=== PATIENT | female | born 1975 | race African-American/Black ===

== ENCOUNTER 2021-10-22 16:17 | Inpatient (IN) | payer SELFPAY ==
[~2021-10-22] VITALS: Ht 162.6 cm; Wt 138.2 kg
[2021-10-22] MEDS ORDERED: ASPIRIN 325 MG TABLET PO ONE (16:30)
--- NOTE | 2021-10-22 16:38 | PHYS DOC ---
General Adult EDM: Chief Complaint: CHEST PAIN HPI: HPI: Patient is a 46 year old female who presents with chest pain lives with her chest pressure heaviness that started last night. She states this subsided slightly but has come back today. She states she is stressed. She has not been on her blood pressure medications for about a year due to not having insurance. Rates her discomfort an 8 out of 10. Patient has a history of hypertension which she supposed be taking metoprolol 50 mg 4. She does have a family history of cardiac disease and she states her dad had CHF. Review of Systems: Review of Systems: Constitutional: Denies fever or chills. [] Eyes: Denies change in visual acuity. [] HENT: Denies nasal congestion or sore throat. [] Respiratory: Denies cough or +shortness of breath. [] Cardiovascular: + chest pain or edema. [] GI: Denies abdominal pain, nausea, vomiting, bloody stools or diarrhea. [] : Denies dysuria. [] Musculoskeletal: Denies back pain or joint pain. [] Integument: Denies rash. [] Neurologic: +headache, denies focal weakness or sensory changes. [] Endocrine: Denies polyuria or polydipsia. [] Lymphatic: Denies swollen glands. [] Psychiatric: Denies depression or anxiety. [] Heart Score: C/O Chest Pain: Yes HEART Score for Chest Pain: HEART Score for Chest Pain Response (Comments) Value History Moderately Suspicious 1 ECG Nonspecific Repolarizatio 1 Age >45 - < 65 1 Risk Factors >3 Risk Factors or Hx CAD 2 Troponin < Normal Limit 0 Total 5 Risk Factors: Risk Factors: DM, Current or recent (<one month) smoker, HTN, HLP, family history of CAD, obesity. Risk Scores: Score 0 - 3: 2.5% MACE over next 6 weeks - Discharge Home Score 4 - 6: 20.3% MACE over next 6 weeks - Admit for Clinical Observation Score 7 - 10: 72.7% MACE over next 6 weeks - Early Invasive Strategies Current Medications: Current Medications Medications (Trade) Dose Ordered Sig/Aminah Start Time Stop Time Status Last Admin Dose Admin Aspirin (Jv Aspirin) 325 mg 1X ONCE 10/22/21 16:30 10/22/21 16:31 DC Allergies: Allergies: Allergies Coded Allergies Type Severity Reaction Last Updated Verified No Known Drug Allergies 10/22/21 No Physical Exam: PE: Constitutional: Well developed, well nourished, no acute distress, non-toxic appearance. [] HENT: Normocephalic, atraumatic, bilateral external ears normal, oropharynx moist, no oral exudates, nose normal. [] Eyes: PERRLA, EOMI, conjunctiva normal, no discharge. [] Neck: Normal range of motion, no tenderness, supple, no stridor. [] Cardiovascular:Heart rate regular rhythm, no murmur [] Lungs & Thorax: Bilateral upper breath sounds clear and lower diminished to auscultation [] Abdomen: Bowel sounds normal, soft, no tenderness, no masses, no pulsatile masses. [] Skin: Warm, dry, no erythema, no rash. [] Back: No tenderness, no CVA tenderness. [] Extremities: No tenderness, no cyanosis, no clubbing, ROM intact, 1+ peripheral edema. [] Neurologic: Alert and oriented X 3, normal motor function, normal sensory function, no focal deficits noted. [] Psychologic: Affect normal, judgement normal, mood normal. [] EKG: EK and read by Dr Pisano as Sinus Rhythm with LVH, Left diviation, No STEMI [address] Pisano as Sinus Rhythm with a widening QT, No STEMI Radiology/Procedures: Radiology/Procedures: [] Impression: [facility] [address] [place] [address] IMAGING REPORT Signed PATIENT: ELO WHITING ACCOUNT: [id number] : 1975 LOCATION: ER AGE: 46 SEX: F EXAM STATUS: PRE ER ORD. PHYSICIAN: JLUIS BASS APRN REASON: chest pain, soa PROCEDURE: PORTABLE CHEST 1V Exam performed: One view chest HISTORY: Chest pain, shortness of air. There service: 10/22/2021. COMPARISON: None available FINDINGS: Single AP upright portable view chest is obtained. Moderate cardiomegaly. Pulmonary vascular is unremarkable. The lungs are clear. No pleural effusion or pneumothorax seen. IMPRESSION: Moderate cardiomegaly. No acute pulmonary findings seen. Electronically signed by: Hailee Richmond MD (10/22/2021 4:51 PM) [facility] DICTATED and SIGNED BY: HAILEE RICHMOND MD DATE: 10/22/21 0139 [facility] [address] [place] [address] IMAGING REPORT Signed PATIENT: ELO WHITING ACCOUNT: [id number] : 1975 LOCATION: ER AGE: 46 SEX: F EXAM STATUS: PRE ER ORD. PHYSICIAN: JLUIS BASS APRN REASON: headache, htn PROCEDURE: CT HEAD WO CONTRAST INDICATION: Reason: headache, htn / Spl. Instructions: / History: COMPARISON: None. TECHNIQUE: Axial CT images obtained through the head without intravenous contrast. One or more of the following individualized dose reduction techniques were utilized for this examination: 1. Automated exposure control; 2. Adjustment of the mA and/or kV according to patient size; 3. Use of iterative reconstruction technique. FINDINGS: Small region of hyperdensity seen near the left cerebral vertex. No significant midline shift. Ventricles and sulci are mildly prominent Scattered foci of low attenuation within the white matter. IMPRESSION: * In the left cerebral hemisphere near the vertex there is a region of subtle high density seen. This may be secondary to visualization of a portion of the cortex with surrounding low density of the white matter but a tiny amount of subarachnoid blood in the area is not excluded. MRI could be helpful to further assess. Alternatively follow-up CT could be obtained in a few hours to ensure no increase. * Scattered regions of low attenuation within the white matter. This is more than typically seen for the patient's age and could be secondary to regions of gliosis or edema. Another possible cause would include demyelination or migraine. This is of indeterminate age and MRI could better assess acuity of this finding. Electronically signed by: Stone Joy MD (10/22/2021 6:27 PM) [id number] DICTATED and SIGNED BY: STONE JOY MD DATE: 10/22/21 4491 Course & Med Decision Making: Course & Med Decision Making Pertinent Labs and Imaging studies reviewed. (See chart for details) See HPI. Alert and oriented x4. Ambulatory steady gait. Speaks in full clear sentences. Patient has 1+ bilateral lower edema. Morbidly obese. Very hypertensive blood pressure in the 220s. I have ordered nitroglycerin sublingual at this time for both chest pain and hypertension.'s are clear in upper lobes and diminished in lower lobes. EKG is abnormal with a sinus rhythm, LVH with some left-sided deviation. I have also ordered aspirin p.o. Patient second EKG showing a widened QT. Her 2 doses of nitro her pain is down to a 3/10 but her blood pressure is still around 200/100. I have ordered a nitro drip IV. Nursing is told to titrate blood pressure to no lower than 180 at this time so that patient's blood pressure does not drop too quickly. Patient admitted by hospitalist. I have Dr. Goldberg about EKG findings on this patient. Blood pressure is not going down and is going back up to the 220s on the nitroglycerin drip. I am changing it to nicardipine. Dr. Goldberg states this is fine. I spoke to Dr. Anderson and let him know about the findings on the CT head. He states that the patient can go to ICU and he will get a repeat CT in the morning. I have ordered frequent neuro checks. CT head shows IMPRESSION: * In the left cerebral hemisphere near the vertex there is a region of subtle high density seen. This may be secondary to visualization of a portion of the cortex with surrounding low density of the white matter but a tiny amount of subarachnoid blood in the area is not excluded. MRI could be helpful to further assess. Alternatively follow-up CT could be obtained in a few hours to ensure no increase. * Scattered regions of low attenuation within the white matter. This is more than typically seen for the patient's age and could be secondary to regions of gliosis or edema. Another possible cause would include demyelination or migraine. This is of indeterminate age and MRI could better assess acuity of this finding. [] Dragon Disclaimer: Mason Disclaimer: This electronic medical record was generated, in whole or in part, using a voice recognition dictation system. Departure Departure Impression: Primary Impression: Hypertensive emergency Additional Impression: Abnormal head CT Disposition: ADMITTED INPATIENT Admitting Physician: DONNY Condition: STABLE Referrals: VIANEY SEPULVEDA MD (PCP) JLUIS BASS ANIMAL SITTER Oct 22, 2021 16:38
[2021-10-22 16:46] LABS: BASO # 0.1 x10^3/uL (0.0-0.2); BASO % 1 % (0-3); EOS # 0.2 x10^3/uL (0.0-0.7); EOS % 3 % (0-3); HEMATOCRIT 43.7 % (36.0-47.0); HEMOGLOBIN 14.8 g/dL (12.0-15.5); LYMPH # 2.3 x10^3/uL (1.0-4.8); LYMPH % 31 % (24-48); MEAN CORPUSCULAR HEMOGLOBIN 29 pg (25-35); MEAN CORPUSCULAR HGB CONC 34 g/dL (31-37); MEAN CORPUSCULAR VOLUME 85 fL (79-100); MONO # 0.7 x10^3/uL (0.0-1.1); MONO % 9 % (0-9); NEUT # 4.3 x10^3/uL (1.8-7.7); NEUT % 57 % (31-73); PLATELET COUNT 395 x10^3/uL (140-400); RED BLOOD COUNT 5.15 x10^6/uL (3.50-5.40); RED CELL DISTRIBUTION WIDTH 14.4 % (11.5-14.5); WHITE BLOOD COUNT 7.5 x10^3/uL (4.0-11.0)
--- NOTE | 2021-10-22 16:53 | RAD ---
Exam performed: One view chest HISTORY: Chest pain, shortness of air. There service: 10/22/2021. COMPARISON: None available FINDINGS: Single AP upright portable view chest is obtained. Moderate cardiomegaly. Pulmonary vascular is unrem arkable. The lungs are clear. No pleural effusion or pneumothorax seen. IMPRESSION: Moderate cardiomegaly. No acute pulmonary findings seen. Electronically signed by: Hailee Richmond MD (10/22/2021 4:51 PM) [facility]
[2021-10-22 16:55] LABS: CALCIUM 9.2 mg/dL (8.5-10.1); CREATININE 1.3 mg/dL (0.6-1.0); GFR 44.3; POTASSIUM 3.9 mmol/L (3.5-5.1); PROTHROMBIN TIME PATIENT 13.3 SEC (11.7-14.0)
[2021-10-22] MEDS: NITROGLYCERIN SUBLINGUAL 0.4 MG BOTTLE OF 25. SL PRN ×3 (16:55→17:19)
[2021-10-22 17:02] LABS: ALBUMIN 3.7 g/dL (3.4-5.0); ALBUMIN/GLOBULIN RATIO 0.8 (1.0-1.7); MAGNESIUM 2.1 mg/dL (1.8-2.4); TOTAL BILIRUBIN 0.8 mg/dL (0.2-1.0); TOTAL PROTEIN 8.3 g/dL (6.4-8.2)
[2021-10-22] MEDS ORDERED: NITROGLYCERIN PREMIX 250 ML IV ONE (17:45)
--- NOTE | 2021-10-22 18:29 | RAD ---
INDICATION: Reason: headache, htn / Spl. Instructions: / History: COMPARISON: None. TECHNIQUE: Axial CT images obtained through the head without intravenous contrast. One or more of the following individualized dose reduction techniques were utilized for this examinat ion: 1. Automated exposure control; 2. Adjustment of the mA and/or kV according to patient size; 3 . Use of iterative reconstruction technique. FINDINGS: Small region of hyperdensity seen near the left cerebral vertex. No significant midline shift. Ventricles and sulci are mildly prominent Scattered foci of low attenuation within the white matter. IMPRESSION: * In the left cerebral hemisphere near the vertex there is a region of subtle high density seen. Th is may be secondary to visualization of a portion of the cortex with surrounding low density of the w mayte matter but a tiny amount of subarachnoid blood in the area is not excluded. MRI could be helpful to further assess. Alternatively follow-up CT could be obtained in a few hours to ensure no increase . * Scattered regions of low attenuation within the white matter. This is more than typically seen for the patient's age and could be secondary to regions of gliosis or edema. Another possible cause woul d include demyelination or migraine. This is of indeterminate age and MRI could better assess acuity of this finding. Electronically signed by: Sonu Blandon MD (10/22/2021 6:27 PM) [id number]
[2021-10-22 18:35] LABS: BACTERIA,URINE FEW /HPF (0-FEW); HYALINE CASTS, URINE FEW /HPF; RBC,URINE 0 /HPF (0-2); WBC,URINE OCC /HPF (0-4)
[2021-10-22 18:50] LABS: BARBITURATES NEG (NEG); BENZODIAZEPINES NEG (NEG); CANNABINOIDS NEG (NEG); COCAINE NEG (NEG); METHADONE NEG (NEG); OPIATES NEG (NEG); PHENCYCLIDINE NEG (NEG)
[2021-10-22 18:53] LABS: AMPHETAMINE/METHAMPHETAMINE NEG (NEG)
[2021-10-22 20:00] VITALS: BP 218/113
[2021-10-22] MEDS ORDERED: diphenhydrAMINE HCL 25 MG CAPSULE PO PRN ×2 (20:00)
[2021-10-22] MEDS ORDERED: ZOLPIDEM 5 MG TABLET. PO PRN (20:00)
[2021-10-22] MEDS ORDERED: SENNOSIDES 8.6 MG TABLET PO PRN (20:00)
[2021-10-22] MEDS ORDERED: diphenhydrAMINE 50 MG/ML VIAL IVP PRN (20:00)
[2021-10-22] MEDS ORDERED: DEXTROSE 50% 25 GM / 50ML DISP.SYRIN. IV PRN (20:00)
[2021-10-22] MEDS ORDERED: LORazepam 0.5 MG TABLET PO PRN (20:00)
[2021-10-22] MEDS ORDERED: ONDANSETRON PF 4 MG/2 ML VIAL. IVP PRN (20:00)
[2021-10-22] MEDS ORDERED: ACETAMINOPHEN 325 MG TABLET. PO PRN (20:00)
[2021-10-22] MEDS ORDERED: DOCUSATE SODIUM 100 MG CAPSULE. PO PRN (20:00)
[2021-10-22] MEDS ORDERED: PROCHLORPERAZINE 10 MG/2 ML VIAL. IV PRN (20:00)
--- NOTE | 2021-10-22 20:03 | PDOC1 ---
History and Physical Date of Service: DOS: DATE: 10/22/21 TIME: 19:50 Chief Complaint: Chief Complain: Headache and chest pressure History of Present Illness: HPI: 46-year-old female with only known history of hypertension who comes in with headaches that started last night and chest pressure and shortness of breath that started later on today. She states that her headache abated last night but also came back this morning. Patient was unable to fill her medications for about a year due to not having insurance. She lost her father last year in March and she is stressed about it. She does have has some chest comfort which is rated 8 out of 10. She describes this as pressure-like nature and does not radiate anywhere specific. She supposed to be taking metoprolol 50 mg. Past Medical/Surgical History: PMH/PSH: Only known history of hypertension Allergies: Allergies: Coded Allergies: No Known Drug Allergies (Unverified , 10/22/21) Family History: Family History: Heart disease in the family Social History: Social History: Denies any alcohol, tobacco or drug abuse Current Medications: Current Medications Current Medications Aspirin (Jv Aspirin) 325 mg 1X ONCE PO Last administered on 10/22/21at 16:55; Start 10/22/21 at 16:30; Stop 10/22/21 at 16:31; Status DC Nitroglycerin (Nitrostat) 0.4 mg PRN Q5MIN PRN SL CHEST PAIN Last administered on 10/22/21at 17:19; Start 10/22/21 at 16:45 Nitroglycerin/ Dextrose 250 ml @ 1.5 mls/hr 1X ONCE IV Last administered on 10/22/21at 17:45; Start 10/22/21 at 17:45; Stop 10/22/21 at 19:11; Status DC Nicardipine HCl 50 mg/Sodium Chloride 250 ml @ 25 mls/hr CONT PRN IV PER PROTOCOL Last administered on 10/22/21at 19:30; Start 10/22/21 at 19:15 ROS: Review of Systems Review of System REVIEW OF SYSTEMS: GENERAL: Denies weakness SKIN: No bruising, hair changes or rashes. EYES: No blurred, double or loss of vision. NOSE AND THROAT: No history of nosebleeds, hoarseness or sore throat. HEART: Positive for chest pressures LUNGS: Positive for shortness of breath GASTROINTESTINAL: Denies changes in appetite, nausea, vomiting, diarrhea or constipation. GENITOURINARY: No history of frequency, urgency, hesitancy or nocturia. NEUROLOGIC: Positive for headaches PSYCHIATRIC: No history of panic, anxiety or depression. ENDOCRINE: No history of heat or cold intolerance, polyuria or polydipsia. EXTREMITIES: Denies joint pain, pain on walking or stiffness. Physical Exam: Vital Signs: Vital Signs Date Time Temp Pulse Resp B/P (MAP) Pulse Ox O2 Delivery O2 Flow Rate FiO2 10/22/21 19:37 82 20 212/125 (154) 98 Room Air 10/22/21 16:21 97.5 97.5 Physcial Exam: General: Well developed, well nourished, no acute distress, well appearing HEENT: Pupils equally round and reactive to light, EOMI, no discharge, normal conjunctiva Neck: Supple, no nuchal rigidity, no JVD, trachea midline, no tenderness Cardiac: RRR, no murmurs, no gallops, no rubs Chest/Lungs: CTAB, no wheeze, no rhonchi, no crackles Abdomen: soft, non-distended, no guarding, no peritoneal signs, non-tender Back: No tenderness Extremities: no edema, pulses intact, non-tender,capillary refill <3 sec bilateral upper and lower extremities, Neuro: Alert and oriented x 4, no focal deficits, normal speech Labs: Labs: Laboratory Tests Test 10/22/21 16:00 10/22/21 18:15 10/22/21 18:20 White Blood Count 7.5 x10^3/uL (4.0-11.0) Red Blood Count 5.15 x10^6/uL (3.50-5.40) Hemoglobin 14.8 g/dL (12.0-15.5) Hematocrit 43.7 % (36.0-47.0) Mean Corpuscular Volume 85 fL (79-100) Mean Corpuscular Hemoglobin 29 pg (25-35) Mean Corpuscular Hemoglobin Concent 34 g/dL (31-37) Red Cell Distribution Width 14.4 % (11.5-14.5) Platelet Count 395 x10^3/uL (140-400) Neutrophils (%) (Auto) 57 % (31-73) Lymphocytes (%) (Auto) 31 % (24-48) Monocytes (%) (Auto) 9 % (0-9) Eosinophils (%) (Auto) 3 % (0-3) Basophils (%) (Auto) 1 % (0-3) Neutrophils # (Auto) 4.3 x10^3/uL (1.8-7.7) Lymphocytes # (Auto) 2.3 x10^3/uL (1.0-4.8) Monocytes # (Auto) 0.7 x10^3/uL (0.0-1.1) Eosinophils # (Auto) 0.2 x10^3/uL (0.0-0.7) Basophils # (Auto) 0.1 x10^3/uL (0.0-0.2) Prothrombin Time 13.3 SEC (11.7-14.0) Prothromb Time International Ratio 1.0 (0.8-1.1) Activated Partial Thromboplast Time 29 SEC (24-38) Sodium Level 136 mmol/L (136-145) Potassium Level 3.9 mmol/L (3.5-5.1) Chloride Level 100 mmol/L (98-107) Carbon Dioxide Level 25 mmol/L (21-32) Anion Gap 11 (6-14) Blood Urea Nitrogen 16 mg/dL (7-20) Creatinine 1.3 mg/dL (0.6-1.0) Estimated GFR (Cockcroft-Gault) 44.3 BUN/Creatinine Ratio 12 (6-20) Glucose Level 127 mg/dL (70-99) Calcium Level 9.2 mg/dL (8.5-10.1) Magnesium Level 2.1 mg/dL (1.8-2.4) Total Bilirubin 0.8 mg/dL (0.2-1.0) Aspartate Amino Transf (AST/SGOT) 103 U/L (15-37) Alanine Aminotransferase (ALT/SGPT) 154 U/L (14-59) Alkaline Phosphatase 219 U/L (46-116) Troponin I High Sensitivity 34 ng/L (4-50) WD-Rhp-V-Type Natriuretic Peptide 5130 pg/mL (0-124) Total Protein 8.3 g/dL (6.4-8.2) Albumin 3.7 g/dL (3.4-5.0) Albumin/Globulin Ratio 0.8 (1.0-1.7) Lipase 71 U/L (73-393) Urine Collection Type Unknown Urine Color (Auto) Yellow Urine Turbidity Hazy Urine pH (Auto) 5.5 (<5.0-8.0) Urine Specific Ladson 1.025 (1.000-1.030) Urine Protein (Auto) 100 mg/dL (Negative) Urine Glucose (Auto)(UA) Negative mg/dL (Negative) Urine Ketones (Auto) Negative mg/dL (Negative) Urine Blood (Auto) Negative (Negative) Urine Nitrite Negative (Negative) Urine Bilirubin (Auto) Negative (Negative) Urine Urobilinogen (Auto) 2 mg/dL (Normal) Urine Leukocyte Esterase (Auto) Negative (Negative) Urine RBC 0 /HPF (0-2) Urine WBC Occ /HPF (0-4) Urine Squamous Epithelial Cells Mod /LPF Urine Bacteria Few /HPF (0-FEW) Urine Hyaline Casts Few /HPF Urine Mucus Mod /LPF Urine Opiates Screen Neg (NEG) Urine Methadone Screen Neg (NEG) Urine Barbiturates Neg (NEG) Urine Phencyclidine Screen Neg (NEG) Urine Amphetamine/Methamphetamine Neg (NEG) Urine Benzodiazepines Screen Neg (NEG) Urine Cocaine Screen Neg (NEG) Urine Cannabinoids Screen Neg (NEG) Urine Ethyl Alcohol Neg (NEG) Bedside Urine HCG, Qualitative Hcg negative (Negative) Laboratory Tests Test 10/22/21 16:00 10/22/21 18:15 10/22/21 18:20 White Blood Count 7.5 x10^3/uL (4.0-11.0) Red Blood Count 5.15 x10^6/uL (3.50-5.40) Hemoglobin 14.8 g/dL (12.0-15.5) Hematocrit 43.7 % (36.0-47.0) Mean Corpuscular Volume 85 fL (79-100) Mean Corpuscular Hemoglobin 29 pg (25-35) Mean Corpuscular Hemoglobin Concent 34 g/dL (31-37) Red Cell Distribution Width 14.4 % (11.5-14.5) Platelet Count 395 x10^3/uL (140-400) Neutrophils (%) (Auto) 57 % (31-73) Lymphocytes (%) (Auto) 31 % (24-48) Monocytes (%) (Auto) 9 % (0-9) Eosinophils (%) (Auto) 3 % (0-3) Basophils (%) (Auto) 1 % (0-3) Neutrophils # (Auto) 4.3 x10^3/uL (1.8-7.7) Lymphocytes # (Auto) 2.3 x10^3/uL (1.0-4.8) Monocytes # (Auto) 0.7 x10^3/uL (0.0-1.1) Eosinophils # (Auto) 0.2 x10^3/uL (0.0-0.7) Basophils # (Auto) 0.1 x10^3/uL (0.0-0.2) Prothrombin Time 13.3 SEC (11.7-14.0) Prothromb Time International Ratio 1.0 (0.8-1.1) Activated Partial Thromboplast Time 29 SEC (24-38) Sodium Level 136 mmol/L (136-145) Potassium Level 3.9 mmol/L (3.5-5.1) Chloride Level 100 mmol/L (98-107) Carbon Dioxide Level 25 mmol/L (21-32) Anion Gap 11 (6-14) Blood Urea Nitrogen 16 mg/dL (7-20) Creatinine 1.3 mg/dL (0.6-1.0) Estimated GFR (Cockcroft-Gault) 44.3 BUN/Creatinine Ratio 12 (6-20) Glucose Level 127 mg/dL (70-99) Calcium Level 9.2 mg/dL (8.5-10.1) Magnesium Level 2.1 mg/dL (1.8-2.4) Total Bilirubin 0.8 mg/dL (0.2-1.0) Aspartate Amino Transf (AST/SGOT) 103 U/L (15-37) Alanine Aminotransferase (ALT/SGPT) 154 U/L (14-59) Alkaline Phosphatase 219 U/L (46-116) Troponin I High Sensitivity 34 ng/L (4-50) XT-Byd-J-Type Natriuretic Peptide 5130 pg/mL (0-124) Total Protein 8.3 g/dL (6.4-8.2) Albumin 3.7 g/dL (3.4-5.0) Albumin/Globulin Ratio 0.8 (1.0-1.7) Lipase 71 U/L (73-393) Urine Collection Type Unknown Urine Color (Auto) Yellow Urine Turbidity Hazy Urine pH (Auto) 5.5 (<5.0-8.0) Urine Specific Ladson 1.025 (1.000-1.030) Urine Protein (Auto) 100 mg/dL (Negative) Urine Glucose (Auto)(UA) Negative mg/dL (Negative) Urine Ketones (Auto) Negative mg/dL (Negative) Urine Blood (Auto) Negative (Negative) Urine Nitrite Negative (Negative) Urine Bilirubin (Auto) Negative (Negative) Urine Urobilinogen (Auto) 2 mg/dL (Normal) Urine Leukocyte Esterase (Auto) Negative (Negative) Urine RBC 0 /HPF (0-2) Urine WBC Occ /HPF (0-4) Urine Squamous Epithelial Cells Mod /LPF Urine Bacteria Few /HPF (0-FEW) Urine Hyaline Casts Few /HPF Urine Mucus Mod /LPF Urine Opiates Screen Neg (NEG) Urine Methadone Screen Neg (NEG) Urine Barbiturates Neg (NEG) Urine Phencyclidine Screen Neg (NEG) Urine Amphetamine/Methamphetamine Neg (NEG) Urine Benzodiazepines Screen Neg (NEG) Urine Cocaine Screen Neg (NEG) Urine Cannabinoids Screen Neg (NEG) Urine Ethyl Alcohol Neg (NEG) Bedside Urine HCG, Qualitative Hcg negative (Negative) Images: Images PROCEDURE: CT HEAD WO CONTRAST INDICATION: Reason: headache, htn / Spl. Instructions: / History: COMPARISON: None. TECHNIQUE: Axial CT images obtained through the head without intravenous contrast. One or more of the following individualized dose reduction techniques were utilized for this examination: 1. Automated exposure control; 2. Adjustment of the mA and/or kV according to patient size; 3. Use of iterative reconstruction technique. FINDINGS: Small region of hyperdensity seen near the left cerebral vertex. No significant midline shift. Ventricles and sulci are mildly prominent Scattered foci of low attenuation within the white matter. IMPRESSION: * In the left cerebral hemisphere near the vertex there is a region of subtle high density seen. This may be secondary to visualization of a portion of the cortex with surrounding low density of the white matter but a tiny amount of subarachnoid blood in the area is not excluded. MRI could be helpful to further assess. Alternatively follow-up CT could be obtained in a few hours to ensure no increase. * Scattered regions of low attenuation within the white matter. This is more than typically seen for the patient's age and could be secondary to regions of gliosis or edema. Another possible cause would include demyelination or migraine. This is of indeterminate age and MRI could better assess acuity of this finding. PROCEDURE: PORTABLE CHEST 1V Exam performed: One view chest HISTORY: Chest pain, shortness of air. There service: 10/22/2021. COMPARISON: None available FINDINGS: Single AP upright portable view chest is obtained. Moderate cardiomegaly. Pulmonary vascular is unremarkable. The lungs are clear. No pleural effusion or pneumothorax seen. IMPRESSION: Moderate cardiomegaly. No acute pulmonary findings seen. Assessment/Plan Assessment/Plan Hypertensive emergency Concern for SAH MARCELINO due to vasomotor nephropathy Mild transaminitis Elevated BNP suggestive of volume overload History of hypertension, noncompliant and uncontrolled Obesity class I Admit to ICU for further management Every [address] head in the morning Continue telemetry monitoring Inpatient systolic blood pressure goals between 160-1 80 Continue Cardene drip Strict I's/O and monitor urine output closely Avoid nephrotoxic agents Pending abdominal ultrasound for elevated liver enzymes SCD only for DVT prophylaxis Cardiac diet CODE STATUS full Discussed with RN and SW Disposition ICU care DPOA: A total of 45 minutes of critical care time was spent in reviewing chart, labs, and images. Discussed with RN and SW. Justifications for Admission Other Justification JIMENA SCHULZ MD Oct 22, 2021 20:03
[2021-10-22 20:30] VITALS: BP 203/114
[2021-10-22 21:00] VITALS: BP 192/101
[2021-10-22] MEDS ORDERED: METO50TA4 PO (21:17)
[2021-10-22 22:00] VITALS: BP 182/92
[2021-10-22 23:00] VITALS: BP 136/59
[2021-10-23] VITALS (25 sets, daily range): BP systolic 143–190; BP diastolic 61–95
[2021-10-23 03:35] LABS: BASO # 0.1 x10^3/uL (0.0-0.2); BASO % 1 % (0-3); CALCIUM 8.7 mg/dL (8.5-10.1); CREATININE 1.1 mg/dL (0.6-1.0); EOS # 0.2 x10^3/uL (0.0-0.7); EOS % 2 % (0-3); HEMATOCRIT 38.9 % (36.0-47.0); HEMOGLOBIN 13.2 g/dL (12.0-15.5); LYMPH % 26 % (24-48); MAGNESIUM 1.8 mg/dL (1.8-2.4); MEAN CORPUSCULAR HEMOGLOBIN 29 pg (25-35); MEAN CORPUSCULAR HGB CONC 34 g/dL (31-37); MEAN CORPUSCULAR VOLUME 85 fL (79-100); MONO # 0.6 x10^3/uL (0.0-1.1); MONO % 8 % (0-9); NEUT % 64 % (31-73); PHOSPHORUS 3.1 mg/dL (2.6-4.7); PLATELET COUNT 371 x10^3/uL (140-400); RED BLOOD COUNT 4.59 x10^6/uL (3.50-5.40); RED CELL DISTRIBUTION WIDTH 14.3 % (11.5-14.5); WHITE BLOOD COUNT 7.8 x10^3/uL (4.0-11.0)
--- NOTE | 2021-10-23 10:02 | RAD ---
CT HEAD/BRAIN WO History: Rule out subarachnoid hemorrhage Comparison: CT head 10/22/2021 Technique: Noncontrast CT imaging was performed of the head. Findings: No intracranial hemorrhage. No mass effect. No hydrocephalus. No evidence of acute territorial infar ction. The area of perceived increased density on prior exam is not redemonstrated on the current exa m, likely representing imaging artifact previously. There are redemonstrated areas of hypodensity in the periventricular and deep white matter. Imaged orbits are unremarkable. Imaged paranasal sinuses and mastoid air cells are clear. The scalp a nd calvarium are unremarkable. Impression: 1. Possible area of subarachnoid hemorrhage not redemonstrated, likely representing imaging artifact . 2. Areas of hypoattenuation within the periventricular and deep white matter, greater than expected for patient's age. Reiterate previous recommendation for MRI for further evaluation. ----- Exposure: One or more of the following individualized dose reduction techniques were utilized for thi s examination: 1. Automated exposure control 2. Adjustment of the mA and/or kV according to patient size 3. Use of iterative reconstruction technique. Electronically signed by: Yogi Green MD (10/23/2021 9:59 AM) [facility]
--- NOTE | 2021-10-23 11:29 | PDOC ---
[employer] PROGRESS NOTE Date of Service DOS: DATE: 10/23/21 TIME: 11:25 Chief Complaint Chief Complaint Hypertensive emergency Concern for SAH MARCELINO due to vasomotor nephropathy Mild transaminitis Elevated BNP suggestive of volume overload History of hypertension, noncompliant and uncontrolled Obesity class I History of Present Illness History of Present Illness 10/23: Patient seen in ICU. She states her headache is resolved. Abdominal ultrasound pending. Repeat CT head this morning showed possible area of subarachnoid hemorrhage not redemonstrated, likely representing imaging artifact; areas of hypoattenuation within the periventricular and deep white matter, greater than expected for patient's age. Patient denies any history concerning for MS or other demyelinating process. We will add losartan and chlorthalidone to her blood pressure regimen given proteinuria on UA. Monitor blood pressure overnight. Discussed with RN. Vitals/I&O Vitals/I&O: Vital Signs Date Time Temp Pulse Resp B/P (MAP) Pulse Ox O2 Delivery O2 Flow Rate FiO2 10/23/21 11:00 68 17 190/90 97 Room Air 10/23/21 08:00 98.5 98.5 I & O 10/22/21 10/22/21 10/23/21 15:00 23:00 07:00 Intake Total 1351.81 ml Balance 1351.81 ml Physical Exam General: Alert, Oriented X3, Cooperative, No acute distress Heart: Regular rate, Other (S3) Lungs: Clear Abdomen: Normal bowel sounds, Soft Extremities: No clubbing, No cyanosis Skin: No breakdown Labs Labs: Laboratory Tests Test 10/22/21 16:00 10/22/21 18:15 10/22/21 18:20 10/23/21 02:00 White Blood Count 7.5 x10^3/uL (4.0-11.0) 7.8 x10^3/uL (4.0-11.0) Red Blood Count 5.15 x10^6/uL (3.50-5.40) 4.59 x10^6/uL (3.50-5.40) Hemoglobin 14.8 g/dL (12.0-15.5) 13.2 g/dL (12.0-15.5) Hematocrit 43.7 % (36.0-47.0) 38.9 % (36.0-47.0) Mean Corpuscular Volume 85 fL (79-100) 85 fL (79-100) Mean Corpuscular Hemoglobin 29 pg (25-35) 29 pg (25-35) Mean Corpuscular Hemoglobin Concent 34 g/dL (31-37) 34 g/dL (31-37) Red Cell Distribution Width 14.4 % (11.5-14.5) 14.3 % (11.5-14.5) Platelet Count 395 x10^3/uL (140-400) 371 x10^3/uL (140-400) Neutrophils (%) (Auto) 57 % (31-73) 64 % (31-73) Lymphocytes (%) (Auto) 31 % (24-48) 26 % (24-48) Monocytes (%) (Auto) 9 % (0-9) 8 % (0-9) Eosinophils (%) (Auto) 3 % (0-3) 2 % (0-3) Basophils (%) (Auto) 1 % (0-3) 1 % (0-3) Neutrophils # (Auto) 4.3 x10^3/uL (1.8-7.7) 5.0 x10^3/uL (1.8-7.7) Lymphocytes # (Auto) 2.3 x10^3/uL (1.0-4.8) 2.0 x10^3/uL (1.0-4.8) Monocytes # (Auto) 0.7 x10^3/uL (0.0-1.1) 0.6 x10^3/uL (0.0-1.1) Eosinophils # (Auto) 0.2 x10^3/uL (0.0-0.7) 0.2 x10^3/uL (0.0-0.7) Basophils # (Auto) 0.1 x10^3/uL (0.0-0.2) 0.1 x10^3/uL (0.0-0.2) Prothrombin Time 13.3 SEC (11.7-14.0) Prothromb Time International Ratio 1.0 (0.8-1.1) Activated Partial Thromboplast Time 29 SEC (24-38) Sodium Level 136 mmol/L (136-145) 137 mmol/L (136-145) Potassium Level 3.9 mmol/L (3.5-5.1) 4.0 mmol/L (3.5-5.1) Chloride Level 100 mmol/L (98-107) 101 mmol/L (98-107) Carbon Dioxide Level 25 mmol/L (21-32) 25 mmol/L (21-32) Anion Gap 11 (6-14) 11 (6-14) Blood Urea Nitrogen 16 mg/dL (7-20) 14 mg/dL (7-20) Creatinine 1.3 mg/dL (0.6-1.0) 1.1 mg/dL (0.6-1.0) Estimated GFR (Cockcroft-Gault) 44.3 65.0 BUN/Creatinine Ratio 12 (6-20) Glucose Level 127 mg/dL (70-99) 138 mg/dL (70-99) Calcium Level 9.2 mg/dL (8.5-10.1) 8.7 mg/dL (8.5-10.1) Magnesium Level 2.1 mg/dL (1.8-2.4) 1.8 mg/dL (1.8-2.4) Total Bilirubin 0.8 mg/dL (0.2-1.0) Aspartate Amino Transf (AST/SGOT) 103 U/L (15-37) Alanine Aminotransferase (ALT/SGPT) 154 U/L (14-59) Alkaline Phosphatase 219 U/L (46-116) Troponin I High Sensitivity 34 ng/L (4-50) 28 ng/L (4-50) IB-Uwp-V-Type Natriuretic Peptide 5130 pg/mL (0-124) Total Protein 8.3 g/dL (6.4-8.2) Albumin 3.7 g/dL (3.4-5.0) Albumin/Globulin Ratio 0.8 (1.0-1.7) Lipase 71 U/L (73-393) Urine Collection Type Unknown Urine Color (Auto) Yellow Urine Turbidity Hazy Urine pH (Auto) 5.5 (<5.0-8.0) Urine Specific [place] 1.025 (1.000-1.030) Urine Protein (Auto) 100 mg/dL (Negative) Urine Glucose (Auto)(UA) Negative mg/dL (Negative) Urine Ketones (Auto) Negative mg/dL (Negative) Urine Blood (Auto) Negative (Negative) Urine Nitrite Negative (Negative) Urine Bilirubin (Auto) Negative (Negative) Urine Urobilinogen (Auto) 2 mg/dL (Normal) Urine Leukocyte Esterase (Auto) Negative (Negative) Urine RBC 0 /HPF (0-2) Urine WBC Occ /HPF (0-4) Urine Squamous Epithelial Cells Mod /LPF Urine Bacteria Few /HPF (0-FEW) Urine Hyaline Casts Few /HPF Urine Mucus Mod /LPF Urine Opiates Screen Neg (NEG) Urine Methadone Screen Neg (NEG) Urine Barbiturates Neg (NEG) Urine Phencyclidine Screen Neg (NEG) Urine Amphetamine/Methamphetamine Neg (NEG) Urine Benzodiazepines Screen Neg (NEG) Urine Cocaine Screen Neg (NEG) Urine Cannabinoids Screen Neg (NEG) Urine Ethyl Alcohol Neg (NEG) Bedside Urine HCG, Qualitative Hcg negative (Negative) Phosphorus Level 3.1 mg/dL (2.6-4.7) Assessment and Plan Assessmemt and Plan Problems Medical Problems: (1) Abnormal head CT Status: Acute (2) Hypertensive emergency Status: Acute Comment Review of Relevant I have reviewed the following items martin (where applicable) has been applied. Medications: Current Medications Medications (Trade) Dose Ordered Sig/Aminah Route PRN Reason Start Time Stop Time Status Last Admin Dose Admin Aspirin (Jv Aspirin) 325 mg 1X ONCE PO 10/22/21 16:30 10/22/21 16:31 DC 10/22/21 16:55 Nitroglycerin (Nitrostat) 0.4 mg PRN Q5MIN PRN SL CHEST PAIN 10/22/21 16:45 10/22/21 17:19 Nitroglycerin/ Dextrose 250 ml @ 1.5 mls/hr 1X ONCE IV 10/22/21 17:45 10/22/21 19:11 DC 10/22/21 17:45 Nicardipine HCl 50 mg/Sodium Chloride 250 ml @ 25 mls/hr CONT PRN IV PER PROTOCOL 10/22/21 19:15 10/23/21 05:52 Justifications for Admission Other Justification Hypertensive emergency JAY COYLE MD Oct 23, 2021 11:29
[2021-10-23] MEDS: LOSARTAN POTASSIUM 25 MG TABLET. PO SCH (11:49)
--- NOTE | 2021-10-23 12:06 | PDOC2 ---
CARDIOLOGY CONSULT NOTE DATE OF SERVICE: DATE: 10/23/21 TIME: 12:01 CHIEF COMPLAINT: Chest pain HPI: 46 y.o woman with prior HTN history presented to the ER with headache and chest pain. Initial BP was 220 systolic and admitted with initiation of nicardipine. Presently denies any chest pain. Headache resolved but there is concern for possible SAH and MRI is pending. No syncope, palpitations, orthopnea or PND. She lost her job and unable to afford meds. PMHX: HTN Obesity SOCHX: No alcohol, tob or illicit drug use. Use to work in [employer] [place] FAMHX: +CHF in her mother in her 30's. CURRENT MEDS: Current Medications Medications (Trade) Dose Ordered Sig/Aminah Route PRN Reason Start Time Stop Time Status Last Admin Dose Admin Aspirin (Jv Aspirin) 325 mg 1X ONCE PO 10/22/21 16:30 10/22/21 16:31 DC 10/22/21 16:55 Nitroglycerin (Nitrostat) 0.4 mg PRN Q5MIN PRN SL CHEST PAIN 10/22/21 16:45 10/22/21 17:19 Nitroglycerin/ Dextrose 250 ml @ 1.5 mls/hr 1X ONCE IV 10/22/21 17:45 10/22/21 19:11 DC 10/22/21 17:45 Nicardipine HCl 50 mg/Sodium Chloride 250 ml @ 25 mls/hr CONT PRN IV PER PROTOCOL 10/22/21 19:15 10/23/21 05:52 Losartan Potassium (Cozaar) 25 mg DAILY PO 10/23/21 12:00 10/23/21 11:49 ALLERGIES: Allergies Coded Allergies Type Severity Reaction Last Updated Verified No Known Drug Allergies 10/22/21 No ROS: Negative for 04/21 systems reviewed unless noted above in HPI PHYSICAL EXAM: Vital Signs/I&O: Vital Signs Date Time Temp Pulse Resp B/P (MAP) Pulse Ox O2 Delivery O2 Flow Rate FiO2 10/23/21 11:49 68 190/90 10/23/21 11:00 17 97 Room Air 10/23/21 08:00 98.5 98.5 I & O 10/22/21 10/22/21 10/23/21 15:00 23:00 07:00 Intake Total 1351.81 ml Balance 1351.81 ml Physical Exam: GEN.: No apparent distress. Alert and oriented. HEENT: Head is normocephalic, atraumatic NECK: Supple. LUNGS: Clear to auscultation. HEART: RRR, S1, S2 present. Peripheral pulses intact ABDOMEN: Soft, nontender. Positive bowel sounds. EXTREMITIES: Without any cyanosis. NEUROLOGIC: Normal speech, normal tone PSYCHIATRIC: Normal affect, normal mood. SKIN: No ulcerations DIAGNOSTIC TESTING: Labs reviewed. EKG with SR and LVH. Lab Laboratory Tests Test 10/22/21 16:00 10/22/21 18:15 10/22/21 18:20 10/23/21 02:00 White Blood Count 7.5 x10^3/uL (4.0-11.0) 7.8 x10^3/uL (4.0-11.0) Red Blood Count 5.15 x10^6/uL (3.50-5.40) 4.59 x10^6/uL (3.50-5.40) Hemoglobin 14.8 g/dL (12.0-15.5) 13.2 g/dL (12.0-15.5) Hematocrit 43.7 % (36.0-47.0) 38.9 % (36.0-47.0) Mean Corpuscular Volume 85 fL (79-100) 85 fL (79-100) Mean Corpuscular Hemoglobin 29 pg (25-35) 29 pg (25-35) Mean Corpuscular Hemoglobin Concent 34 g/dL (31-37) 34 g/dL (31-37) Red Cell Distribution Width 14.4 % (11.5-14.5) 14.3 % (11.5-14.5) Platelet Count 395 x10^3/uL (140-400) 371 x10^3/uL (140-400) Neutrophils (%) (Auto) 57 % (31-73) 64 % (31-73) Lymphocytes (%) (Auto) 31 % (24-48) 26 % (24-48) Monocytes (%) (Auto) 9 % (0-9) 8 % (0-9) Eosinophils (%) (Auto) 3 % (0-3) 2 % (0-3) Basophils (%) (Auto) 1 % (0-3) 1 % (0-3) Neutrophils # (Auto) 4.3 x10^3/uL (1.8-7.7) 5.0 x10^3/uL (1.8-7.7) Lymphocytes # (Auto) 2.3 x10^3/uL (1.0-4.8) 2.0 x10^3/uL (1.0-4.8) Monocytes # (Auto) 0.7 x10^3/uL (0.0-1.1) 0.6 x10^3/uL (0.0-1.1) Eosinophils # (Auto) 0.2 x10^3/uL (0.0-0.7) 0.2 x10^3/uL (0.0-0.7) Basophils # (Auto) 0.1 x10^3/uL (0.0-0.2) 0.1 x10^3/uL (0.0-0.2) Prothrombin Time 13.3 SEC (11.7-14.0) Prothromb Time International Ratio 1.0 (0.8-1.1) Activated Partial Thromboplast Time 29 SEC (24-38) Sodium Level 136 mmol/L (136-145) 137 mmol/L (136-145) Potassium Level 3.9 mmol/L (3.5-5.1) 4.0 mmol/L (3.5-5.1) Chloride Level 100 mmol/L (98-107) 101 mmol/L (98-107) Carbon Dioxide Level 25 mmol/L (21-32) 25 mmol/L (21-32) Anion Gap 11 (6-14) 11 (6-14) Blood Urea Nitrogen 16 mg/dL (7-20) 14 mg/dL (7-20) Creatinine 1.3 mg/dL (0.6-1.0) H 1.1 mg/dL (0.6-1.0) H Estimated GFR (Cockcroft-Gault) 44.3 65.0 BUN/Creatinine Ratio 12 (6-20) Glucose Level 127 mg/dL (70-99) H 138 mg/dL (70-99) H Calcium Level 9.2 mg/dL (8.5-10.1) 8.7 mg/dL (8.5-10.1) Total Bilirubin 0.8 mg/dL (0.2-1.0) Aspartate Amino Transf (AST/SGOT) 103 U/L (15-37) H Alkaline Phosphatase 219 U/L (46-116) H Troponin I High Sensitivity 34 ng/L (4-50) 28 ng/L (4-50) Total Protein 8.3 g/dL (6.4-8.2) H Albumin 3.7 g/dL (3.4-5.0) Albumin/Globulin Ratio 0.8 (1.0-1.7) L Lipase 71 U/L (73-393) L Urine Collection Type Unknown Urine Color (Auto) Yellow Urine Turbidity Hazy Urine pH (Auto) 5.5 (<5.0-8.0) Urine Specific [place] 1.025 (1.000-1.030) Urine Protein (Auto) 100 mg/dL (Negative) Urine Glucose (Auto)(UA) Negative mg/dL (Negative) Urine Ketones (Auto) Negative mg/dL (Negative) Urine Blood (Auto) Negative (Negative) Urine Nitrite Negative (Negative) Urine Bilirubin (Auto) Negative (Negative) Urine Urobilinogen (Auto) 2 mg/dL (Normal) Urine Leukocyte Esterase (Auto) Negative (Negative) Urine RBC 0 /HPF (0-2) Urine WBC Occ /HPF (0-4) Urine Squamous Epithelial Cells Mod /LPF Urine Bacteria Few /HPF (0-FEW) Urine Hyaline Casts Few /HPF Urine Mucus Mod /LPF Urine Opiates Screen Neg (NEG) Urine Methadone Screen Neg (NEG) Urine Barbiturates Neg (NEG) Urine Phencyclidine Screen Neg (NEG) Urine Amphetamine/Methamphetamine Neg (NEG) Urine Benzodiazepines Screen Neg (NEG) Urine Cocaine Screen Neg (NEG) Urine Cannabinoids Screen Neg (NEG) Urine Ethyl Alcohol Neg (NEG) Bedside Urine HCG, Qualitative Hcg negative (Negative) Phosphorus Level 3.1 mg/dL (2.6-4.7) Laboratory Tests 10/23/21 02:00 ASSESSMENT: 1. Hypertensive urgency. 2. Obesity PLAN: 1. Start medications on the $4 list. Continue losartan, but will likely need higher dose. Amlodipine 10mg now. Switch to HCTZ 25mg daily. 2. Check echo. Supportive care. Thanks ENRIQUE MACARIO MD Oct 23, 2021 12:06
[2021-10-23] MEDS: CHLORTHALIDONE 25 MG TABLET. PO SCH (12:19)
--- NOTE | 2021-10-23 13:00 | NUR ---
1100h- US staff called for patient's US of abdomen, agreed that patient ,ay start NPO from 1300h, and schedule the ultrasound between 8-9pm. Patient instructed, which she understood. antihypertensive medications per orem given with BP precaution. 1300h- patient just ate lunch, reinstructed NPO from now until ultrasound is done, verbalized understanding.
[2021-10-24] VITALS (19 sets, daily range): BP systolic 142–202; BP diastolic 63–110
--- NOTE | 2021-10-24 00:01 | RAD ---
EXAM: ULTRASOUND ABDOMEN COMPLETE CLINICAL HISTORY: Reason: transaminitis; 100- PT had Breaskfast Lunch at 1- do in pm today per RN / Spl. Instructions: / History: COMPARISON: None available. TECHNIQUE: Ultrasound of the upper abdomen was performed. FINDINGS: Liver contour is normal. Hepatopedal flow noted in the portal vein. Increased echogenicity liver pare nchyma. Gallbladder is partially distended. Gallstones on of the gallbladder. No pericholecystic fluid or wal l thickening. Right kidney measures 11.4 cm in long axis. No hydronephrosis. Left kidney measures 12.7 cm in long axis. No hydronephrosis. Spleen measures 10.7 cm in long axis. Visualized portions aorta and IVC are unremarkable. IMPRESSION: 1. Diffuse hepatic steatosis. 2. Cholelithiasis. 3. No hydronephrosis. 4. No splenomegaly. Electronically signed by: Lan Mendez MD (10/23/2021 11:59 PM) [facility]
[2021-10-24 05:06] LABS: BASO % 1 % (0-3); EOS # 0.3 x10^3/uL (0.0-0.7); EOS % 5 % (0-3); HEMOGLOBIN 13.3 g/dL (12.0-15.5); LYMPH # 1.7 x10^3/uL (1.0-4.8); LYMPH % 30 % (24-48); MEAN CORPUSCULAR HEMOGLOBIN 28 pg (25-35); MEAN CORPUSCULAR HGB CONC 33 g/dL (31-37); MEAN CORPUSCULAR VOLUME 85 fL (79-100); MONO # 0.6 x10^3/uL (0.0-1.1); MONO % 10 % (0-9); NEUT # 3.2 x10^3/uL (1.8-7.7); NEUT % 55 % (31-73); PLATELET COUNT 378 x10^3/uL (140-400); RED BLOOD COUNT 4.73 x10^6/uL (3.50-5.40); RED CELL DISTRIBUTION WIDTH 14.6 % (11.5-14.5); WHITE BLOOD COUNT 5.8 x10^3/uL (4.0-11.0)
[2021-10-24 05:27] LABS: CREATININE 0.9 mg/dL (0.6-1.0); GFR 81.9; MAGNESIUM 1.9 mg/dL (1.8-2.4); POTASSIUM 3.5 mmol/L (3.5-5.1)
[2021-10-24 05:33] LABS: CHOLESTEROL/HDL RATIO 2.7
[2021-10-24] MEDS: LOSARTAN POTASSIUM 25 MG TABLET. PO SCH (08:19)
[2021-10-24] MEDS: CHLORTHALIDONE 25 MG TABLET. PO SCH (08:40)
--- NOTE | 2021-10-24 10:06 | EKG ---
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
--- NOTE | 2021-10-24 10:07 | EKG ---
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
--- NOTE | 2021-10-24 10:16 | PDOC ---
WYATT LERMA JENIFER 10/24/21 1016: CARDIO Progress Notes Date and Time Date of Service 10/24/21 Time of Evaluation 1020 Subjective Subjective: No Chest Pain, No shortness of breath, No Palpitations, No Dizziness Vitals Vitals Vital Signs Date Time Temp Pulse Resp B/P (MAP) Pulse Ox O2 Delivery O2 Flow Rate FiO2 10/24/21 09:00 86 16 156/82 98 Room Air 10/24/21 08:00 97.9 97.9 Weight Weight [ ] Input and Output Intake and Output Intake and Output 10/24/21 07:00 Intake Total 1731.42 ml Balance 1731.42 ml Intake Oral 900 ml IV Total 831.42 ml # Voids 7 Laboratory Labs Laboratory Tests Test 10/24/21 04:15 White Blood Count 5.8 x10^3/uL (4.0-11.0) Red Blood Count 4.73 x10^6/uL (3.50-5.40) Hemoglobin 13.3 g/dL (12.0-15.5) Hematocrit 40.0 % (36.0-47.0) Mean Corpuscular Volume 85 fL (79-100) Mean Corpuscular Hemoglobin 28 pg (25-35) Mean Corpuscular Hemoglobin Concent 33 g/dL (31-37) Red Cell Distribution Width 14.6 % (11.5-14.5) Platelet Count 378 x10^3/uL (140-400) Neutrophils (%) (Auto) 55 % (31-73) Lymphocytes (%) (Auto) 30 % (24-48) Monocytes (%) (Auto) 10 % (0-9) Eosinophils (%) (Auto) 5 % (0-3) Basophils (%) (Auto) 1 % (0-3) Neutrophils # (Auto) 3.2 x10^3/uL (1.8-7.7) Lymphocytes # (Auto) 1.7 x10^3/uL (1.0-4.8) Monocytes # (Auto) 0.6 x10^3/uL (0.0-1.1) Eosinophils # (Auto) 0.3 x10^3/uL (0.0-0.7) Basophils # (Auto) 0.0 x10^3/uL (0.0-0.2) Sodium Level 137 mmol/L (136-145) Potassium Level 3.5 mmol/L (3.5-5.1) Chloride Level 102 mmol/L (98-107) Carbon Dioxide Level 24 mmol/L (21-32) Anion Gap 11 (6-14) Blood Urea Nitrogen 9 mg/dL (7-20) Creatinine 0.9 mg/dL (0.6-1.0) Estimated GFR (Cockcroft-Gault) 81.9 Glucose Level 115 mg/dL (70-99) Calcium Level 9.0 mg/dL (8.5-10.1) Magnesium Level 1.9 mg/dL (1.8-2.4) Triglycerides Level 78 mg/dL (0-150) Cholesterol Level 213 mg/dL (0-200) LDL Cholesterol, Calculated 119 mg/dL (0-100) VLDL Cholesterol, Calculated 16 mg/dL (0-40) Non-HDL Cholesterol Calculated 135 mg/dL (0-129) HDL Cholesterol 78 mg/dL (40-60) Cholesterol/HDL Ratio 2.7 Physical Exam HEENT: Neck Supple W Full Motion Chest: Symmetric LUNGS: Clear to Auscultation Heart: RRR Abdomen: Soft N/T, Other (obese) Extremities: No Edema Neurology: alert, oriented, follow commands Assessment Assessment 1. Hypertensive urgency; remains on Cardene gtt 2. Obesity Recommendations Continue amlodipine 10mg. Increase losartan to 100mg. Switch to HCTZ 25mg daily Titrate off Cardene gtt Echocardiogram Supportive care Justicifation of Admission Dx: Justifications for Admission: Justification of Admission Dx: Yes CHF: Cardiac Arrhythmias Comments: Hypertensive urgency ENRIQUE MACARIO MD 10/24/21 1416: CARDIO Progress Notes Plan Plan The patient was seen and interviewed as well as examined at the bedside. The chart was reviewed. The case was discussed. Agree with the plan of care. WYATT LERMA APRN Oct 24, 2021 10:16 ENRIQUE MACARIO MD Oct 24, 2021 23:46
[2021-10-24] MEDS ORDERED: LOSARTAN POTASSIUM 25 MG TABLET. PO ONE (11:30)
[2021-10-24] MEDS: CARVEDILOL 12.5 MG TABLET. PO SCH ×2 (13:03→17:05)
--- NOTE | 2021-10-24 14:07 | PDOC ---
[employer] PROGRESS NOTE Date of Service DOS: DATE: 10/24/21 TIME: 14:02 Chief Complaint Chief Complaint Hypertensive emergency Concern for SAH MARCELINO due to vasomotor nephropathy Mild transaminitis Elevated BNP suggestive of volume overload History of hypertension, noncompliant and uncontrolled Obesity class I History of Present Illness History of Present Illness 10/23: Patient seen in ICU. She states her headache is resolved. Abdominal ultrasound pending. Repeat CT head this morning showed possible area of subarachnoid hemorrhage not redemonstrated, likely representing imaging artifact; areas of hypoattenuation within the periventricular and deep white matter, greater than expected for patient's age. Patient denies any history concerning for MS or other demyelinating process. We will add losartan and chlorthalidone to her blood pressure regimen given proteinuria on UA. Monitor blood pressure overnight. Discussed with RN. 10/24: Patient seen at bedside. Reportedly systolic blood pressure increased to over 200 today, and placed back on nicardipine drip. We will adjust her blood pressure medications. Her ASCVD risk factor is not recommending statins currently. Her hemoglobin A1c is pending. Vitals/I&O Vitals/I&O: Vital Signs Date Time Temp Pulse Resp B/P (MAP) Pulse Ox O2 Delivery O2 Flow Rate FiO2 10/24/21 13:15 84 16 171/88 96 Room Air 10/24/21 12:00 98.5 98.5 I & O 10/23/21 10/23/21 10/24/21 15:00 23:00 07:00 Intake Total 900 ml 428 ml 403.42 ml Balance 900 ml 428 ml 403.42 ml Physical Exam General: Alert, Oriented X3, Cooperative, No acute distress Heart: Regular rate, Other (S3) Lungs: Clear Abdomen: Normal bowel sounds, Soft Extremities: No clubbing, No cyanosis Skin: No breakdown Labs Labs: Laboratory Tests Test 10/24/21 04:15 White Blood Count 5.8 x10^3/uL (4.0-11.0) Red Blood Count 4.73 x10^6/uL (3.50-5.40) Hemoglobin 13.3 g/dL (12.0-15.5) Hematocrit 40.0 % (36.0-47.0) Mean Corpuscular Volume 85 fL (79-100) Mean Corpuscular Hemoglobin 28 pg (25-35) Mean Corpuscular Hemoglobin Concent 33 g/dL (31-37) Red Cell Distribution Width 14.6 % (11.5-14.5) Platelet Count 378 x10^3/uL (140-400) Neutrophils (%) (Auto) 55 % (31-73) Lymphocytes (%) (Auto) 30 % (24-48) Monocytes (%) (Auto) 10 % (0-9) Eosinophils (%) (Auto) 5 % (0-3) Basophils (%) (Auto) 1 % (0-3) Neutrophils # (Auto) 3.2 x10^3/uL (1.8-7.7) Lymphocytes # (Auto) 1.7 x10^3/uL (1.0-4.8) Monocytes # (Auto) 0.6 x10^3/uL (0.0-1.1) Eosinophils # (Auto) 0.3 x10^3/uL (0.0-0.7) Basophils # (Auto) 0.0 x10^3/uL (0.0-0.2) Sodium Level 137 mmol/L (136-145) Potassium Level 3.5 mmol/L (3.5-5.1) Chloride Level 102 mmol/L (98-107) Carbon Dioxide Level 24 mmol/L (21-32) Anion Gap 11 (6-14) Blood Urea Nitrogen 9 mg/dL (7-20) Creatinine 0.9 mg/dL (0.6-1.0) Estimated GFR (Cockcroft-Gault) 81.9 Glucose Level 115 mg/dL (70-99) Calcium Level 9.0 mg/dL (8.5-10.1) Magnesium Level 1.9 mg/dL (1.8-2.4) Triglycerides Level 78 mg/dL (0-150) Cholesterol Level 213 mg/dL (0-200) LDL Cholesterol, Calculated 119 mg/dL (0-100) VLDL Cholesterol, Calculated 16 mg/dL (0-40) Non-HDL Cholesterol Calculated 135 mg/dL (0-129) HDL Cholesterol 78 mg/dL (40-60) Cholesterol/HDL Ratio 2.7 Assessment and Plan Assessmemt and Plan Problems Medical Problems: (1) Abnormal head CT Status: Acute (2) Hypertensive emergency Status: Acute Comment Review of Relevant I have reviewed the following items martin (where applicable) has been applied. Medications: Current Medications Medications (Trade) Dose Ordered Sig/Aminah Route PRN Reason Start Time Stop Time Status Last Admin Dose Admin Amlodipine Besylate (Norvasc) 10 mg DAILY PO 10/24/21 09:00 10/24/21 08:18 Losartan Potassium (Cozaar) 75 mg 1X ONCE PO 10/24/21 11:30 10/24/21 11:31 DC 10/24/21 11:16 Carvedilol (Coreg) 12.5 mg BIDWMEALS PO 10/24/21 13:00 10/24/21 13:03 Justifications for Admission Other Justification Hypertensive emergency JAY COYLE MD Oct 24, 2021 14:06
--- NOTE | 2021-10-24 17:42 | CARD ---
MR#: [id number] Date of Study: 10/24/2021 Ordering Physician: JAY COYLE, Referring Physician: JAY COYLE Tech: Marques Olivas [facility] APPROVED REPORT EXAM: Two-dimensional and M-mode echocardiogram with Doppler and color Doppler. Other Information Quality : AverageHR: 87bpm Rhythm : NSR INDICATION Hypertension/HCVD Murmur RISK FACTORS Hypertension Obesity 2D DIMENSIONS Left Atrium(2D)4.7 (1.6-4.0cm)IVSd1.7 (0.7-1.1cm) Aortic Root(2D)3.7 (2.0-3.7cm)LVDd5.6 (3.9-5.9cm) LVOT Diameter2.4 (1.8-2.4cm)PWd1.7 (0.7-1.1cm) LA [place]590 (18-58mL)LVDs3.5 (2.5-4.0cm) FS (%) 37.9 %SV101.0 ml Aortic Valve AoV Peak Karlos.157.3cm/sAoV VTI25.5cm AO Peak GR.9.9mmHgLVOT VTI 16.97cm AO Mean GR.6mmHg Mitral Valve MV E Nrfufnwm22.7cm/sMV DECEL EHIL841jw MV A Hbbnohbe688.3cm/sE/A Ratio0.6 TDI Lateral E' P. V4.44cm/sMedial E' P. V6.44cm/s E/Lateral E'16.1E/Medial E'11.1 Pulmonary Valve PV Peak Geavqttg56.8cm/s Tricuspid Valve TR P. Dqecyjkt020xe/sTR Peak Gr.16mmHg LEFT VENTRICLE The left ventricle is normal size. There is mild concentric left ventricular hypertrophy. The left ve ntricular systolic function is normal and the ejection fraction is within normal range. LV ejection f raction is 50 to 55%. There is normal LV segmental wall motion. No left ventricle thrombus noted on t his study. There is no ventricular septal defect visualized. There is no left ventricular aneurysm. T here is no mass noted in the left ventricle. RIGHT VENTRICLE The right ventricle is normal size. There is normal right ventricular wall thickness. The right ventr icular systolic function is normal. ATRIA The left atrium is mildly dilated. The right atrium size is normal. The interatrial septum is intact with no evidence for an atrial septal defect or patent foramen ovale as noted on 2-D or Doppler imagi ng. AORTIC VALVE The aortic valve is thickened but opens well. Doppler and Color Flow revealed trace aortic regurgitat ion. There is no significant aortic valvular stenosis. There is no aortic valvular vegetation. MITRAL VALVE The mitral valve is thickened but opens well. There is no evidence of mitral valve prolapse. There is no mitral valve stenosis. Doppler and Color-flow revealed trace mitral regurgitation. TRICUSPID VALVE The tricuspid valve is normal in structure and function. Doppler and Color Flow revealed trace tricus pid regurgitation. There is no tricuspid valve prolapse or vegetation. There is no tricuspid valve st enosis. PULMONIC VALVE The pulmonary valve is normal in structure and function. Doppler and Color Flow revealed no pulmonic valvular regurgitation. There is no pulmonic valvular stenosis. GREAT VESSELS The aortic root is normal in size. The ascending aorta is normal in size. The pulmonary artery is nor mal. The IVC is normal in size and collapses >50% with inspiration. PERICARDIAL EFFUSION There is no pleural effusion. There is no evidence of significant pericardial effusion. Critical Notification Critical Value: No <Conclusion> The left ventricle is normal size. The left ventricular systolic function is normal and the ejection fraction is within normal range. LV ejection fraction is 50 to 55%. There is mild concentric left ventricular hypertrophy. Doppler and Color Flow revealed trace aortic regurgitation. There is no significant aortic valvular stenosis. Doppler and Color-flow revealed trace mitral regurgitation. Doppler and Color Flow revealed trace tricuspid regurgitation. Signed by : Mickey Alas MD Electronically Approved : 10/24/2021 17:42:14
[2021-10-24] MEDS ORDERED: hydrALAZINE 20 MG/ML VIAL. IVP ONE (22:00)
[2021-10-25] VITALS (7 sets, daily range): BP systolic 131–186; BP diastolic 71–89
[2021-10-25 00:34] LABS: HEMOGLOBIN A1C 6.1 % (4.8-5.6)
[2021-10-25 05:14] LABS: BASO % 1 % (0-3); EOS # 0.3 x10^3/uL (0.0-0.7); EOS % 5 % (0-3); HEMATOCRIT 42.5 % (36.0-47.0); HEMOGLOBIN 13.8 g/dL (12.0-15.5); LYMPH # 1.2 x10^3/uL (1.0-4.8); LYMPH % 20 % (24-48); MEAN CORPUSCULAR HEMOGLOBIN 28 pg (25-35); MEAN CORPUSCULAR HGB CONC 33 g/dL (31-37); MEAN CORPUSCULAR VOLUME 85 fL (79-100); MONO # 0.5 x10^3/uL (0.0-1.1); MONO % 9 % (0-9); NEUT # 3.9 x10^3/uL (1.8-7.7); NEUT % 66 % (31-73); PLATELET COUNT 426 x10^3/uL (140-400); RED BLOOD COUNT 5.01 x10^6/uL (3.50-5.40); RED CELL DISTRIBUTION WIDTH 14.6 % (11.5-14.5)
[2021-10-25 05:27] LABS: CALCIUM 8.7 mg/dL (8.5-10.1); CREATININE 0.9 mg/dL (0.6-1.0); GFR 81.9; MAGNESIUM 1.7 mg/dL (1.8-2.4); POTASSIUM 3.9 mmol/L (3.5-5.1)
[2021-10-25] MEDS ORDERED: MAGNESIUM SULFATE 2GM 50 ML IV ONE (08:00)
[2021-10-25] MEDS: hydroCHLOROthiazide 25 MG TABLET PO SCH (08:41)
[2021-10-25] MEDS: LOSARTAN POTASSIUM 50 MG TABLET. PO SCH (08:43)
[2021-10-25] MEDS: CARVEDILOL 12.5 MG TABLET. PO SCH ×2 (08:43→16:48)
--- NOTE | 2021-10-25 10:53 | PDOC ---
WYATT LERMA [facility] [employer] 10/25/21 1053: CARDIO Progress Notes Date and Time Date of Service 10/25/21 Time of Evaluation 1040 Subjective Subjective: No Chest Pain, No shortness of breath, No Palpitations, No Dizziness Vitals Vitals Vital Signs Date Time Temp Pulse Resp B/P (MAP) Pulse Ox O2 Delivery O2 Flow Rate FiO2 10/25/21 08:43 79 186/76 10/25/21 08:25 98.4 16 99 Room Air 98.4 Weight Weight [ ] Input and Output Intake and Output Intake and Output 10/25/21 07:00 Intake Total 1318 ml Balance 1318 ml Intake Oral 1060 ml IV Total 258 ml # Voids 5 # Bowel Movements 1 Laboratory Labs Laboratory Tests Test 10/25/21 04:10 White Blood Count 6.0 x10^3/uL (4.0-11.0) Red Blood Count 5.01 x10^6/uL (3.50-5.40) Hemoglobin 13.8 g/dL (12.0-15.5) Hematocrit 42.5 % (36.0-47.0) Mean Corpuscular Volume 85 fL (79-100) Mean Corpuscular Hemoglobin 28 pg (25-35) Mean Corpuscular Hemoglobin Concent 33 g/dL (31-37) Red Cell Distribution Width 14.6 % (11.5-14.5) Platelet Count 426 x10^3/uL (140-400) Neutrophils (%) (Auto) 66 % (31-73) Lymphocytes (%) (Auto) 20 % (24-48) Monocytes (%) (Auto) 9 % (0-9) Eosinophils (%) (Auto) 5 % (0-3) Basophils (%) (Auto) 1 % (0-3) Neutrophils # (Auto) 3.9 x10^3/uL (1.8-7.7) Lymphocytes # (Auto) 1.2 x10^3/uL (1.0-4.8) Monocytes # (Auto) 0.5 x10^3/uL (0.0-1.1) Eosinophils # (Auto) 0.3 x10^3/uL (0.0-0.7) Basophils # (Auto) 0.0 x10^3/uL (0.0-0.2) Sodium Level 134 mmol/L (136-145) Potassium Level 3.9 mmol/L (3.5-5.1) Chloride Level 101 mmol/L (98-107) Carbon Dioxide Level 25 mmol/L (21-32) Anion Gap 8 (6-14) Blood Urea Nitrogen 9 mg/dL (7-20) Creatinine 0.9 mg/dL (0.6-1.0) Estimated GFR (Cockcroft-Gault) 81.9 Glucose Level 116 mg/dL (70-99) Calcium Level 8.7 mg/dL (8.5-10.1) Magnesium Level 1.7 mg/dL (1.8-2.4) Physical Exam HEENT: Neck Supple W Full Motion Chest: Symmetric LUNGS: Clear to Auscultation Heart: RRR Abdomen: Soft N/T, Other (obese) Extremities: No Edema Neurology: alert, oriented, follow commands Assessment Assessment 1. Hypertensive urgency; off Cardene gtt. Bp remains mildly elevated. Echo with LVEF 50-55% 2. Obesity Recommendations Continue amlodipine, losartan, HCTZ Add hydralazine [facility] blood pressure monitoring Justicifation of Admission Dx: Justifications for Admission: Justification of Admission Dx: Yes CHF: Cardiac Arrhythmias ENRIQUE MACARIO MD 10/28/21 1248: CARDIO Progress Notes Plan Plan Late entry for 10/25/2021 Patient seen and examined. Agree with above nurse practitioner note WYATT LERMA APRN Oct 25, 2021 10:53 ENRIQUE MACARIO MD Oct 28, 2021 12:48
--- NOTE | 2021-10-25 14:54 | PDOC ---
[facility] PROGRESS NOTE Date of Service DOS: DATE: 10/25/21 TIME: 14:53 Chief Complaint Chief Complaint Hypertensive emergency Concern for SAH MARCELINO due to vasomotor nephropathy Mild transaminitis Elevated BNP suggestive of volume overload History of hypertension, noncompliant and uncontrolled Obesity class I History of Present Illness History of Present Illness 10/23: Patient seen in ICU. She states her headache is resolved. Abdominal ultrasound pending. Repeat CT head this morning showed possible area of subarachnoid hemorrhage not redemonstrated, likely representing imaging artifact; areas of hypoattenuation within the periventricular and deep white matter, greater than expected for patient's age. Patient denies any history concerning for MS or other demyelinating process. We will add losartan and chlorthalidone to her blood pressure regimen given proteinuria on UA. Monitor blood pressure overnight. Discussed with RN. 10/24: Patient seen at bedside. Reportedly systolic blood pressure increased to over 200 today, and placed back on nicardipine drip. We will adjust her blood pressure medications. Her ASCVD risk factor is not recommending statins currently. Her hemoglobin A1c is pending. 10/25/2021 No acute events or night. Patient seen examined bedside. Cardene started overnight due to elevated blood pressures greater than 200s. This morning patient seen was still in the systolics of 190s. Started on amlodipine, losartan and HCTZ. Hydralazine has been added due to uncontrolled blood pressures. We will continue to observe. Anticipate discharge tomorrow. Patient's chart, labs, images were reviewed and discussed with RN Vitals/I&O Vitals/I&O: Vital Signs Date Time Temp Pulse Resp B/P (MAP) Pulse Ox O2 Delivery O2 Flow Rate FiO2 10/25/21 13:25 98.7 78 18 159/78 (105) 98 Room Air 98.7 I & O 10/24/21 10/24/21 10/25/21 15:00 23:00 07:00 Intake Total 200 ml 998 ml 120 ml Balance 200 ml 998 ml 120 ml Physical Exam General: Alert, Oriented X3, Cooperative, No acute distress Heart: Regular rate, Other (S3) Lungs: Clear Abdomen: Normal bowel sounds, Soft Extremities: No clubbing, No cyanosis Skin: No breakdown Labs Labs: Laboratory Tests Test 10/25/21 04:10 White Blood Count 6.0 x10^3/uL (4.0-11.0) Red Blood Count 5.01 x10^6/uL (3.50-5.40) Hemoglobin 13.8 g/dL (12.0-15.5) Hematocrit 42.5 % (36.0-47.0) Mean Corpuscular Volume 85 fL (79-100) Mean Corpuscular Hemoglobin 28 pg (25-35) Mean Corpuscular Hemoglobin Concent 33 g/dL (31-37) Red Cell Distribution Width 14.6 % (11.5-14.5) Platelet Count 426 x10^3/uL (140-400) Neutrophils (%) (Auto) 66 % (31-73) Lymphocytes (%) (Auto) 20 % (24-48) Monocytes (%) (Auto) 9 % (0-9) Eosinophils (%) (Auto) 5 % (0-3) Basophils (%) (Auto) 1 % (0-3) Neutrophils # (Auto) 3.9 x10^3/uL (1.8-7.7) Lymphocytes # (Auto) 1.2 x10^3/uL (1.0-4.8) Monocytes # (Auto) 0.5 x10^3/uL (0.0-1.1) Eosinophils # (Auto) 0.3 x10^3/uL (0.0-0.7) Basophils # (Auto) 0.0 x10^3/uL (0.0-0.2) Sodium Level 134 mmol/L (136-145) Potassium Level 3.9 mmol/L (3.5-5.1) Chloride Level 101 mmol/L (98-107) Carbon Dioxide Level 25 mmol/L (21-32) Anion Gap 8 (6-14) Blood Urea Nitrogen 9 mg/dL (7-20) Creatinine 0.9 mg/dL (0.6-1.0) Estimated GFR (Cockcroft-Gault) 81.9 Glucose Level 116 mg/dL (70-99) Calcium Level 8.7 mg/dL (8.5-10.1) Magnesium Level 1.7 mg/dL (1.8-2.4) Assessment and Plan Assessmemt and Plan Problems Medical Problems: (1) Abnormal head CT Status: Acute (2) Hypertensive emergency Status: Acute Comment Review of Relevant I have reviewed the following items martin (where applicable) has been applied. Medications: Current Medications Medications (Trade) Dose Ordered Sig/Aminah Route PRN Reason Start Time Stop Time Status Last Admin Dose Admin Losartan Potassium (Cozaar) 100 mg DAILY PO 10/25/21 09:00 10/25/21 08:43 Hydrochlorothiazide (Hydrodiuril) 25 mg DAILY PO 10/25/21 09:00 10/25/21 08:41 Hydralazine HCl (Apresoline Inj) 10 mg 1X ONCE IVP 10/24/21 22:00 10/24/21 22:04 DC 10/24/21 22:09 Magnesium Sulfate 50 ml @ 25 mls/hr 1X ONCE IV 10/25/21 08:00 10/25/21 09:59 DC 10/25/21 09:16 Hydralazine HCl (Apresoline) 50 mg BID PO 10/25/21 11:00 10/25/21 11:31 Justifications for Admission Other Justification Hypertensive emergency JIMENA SCHULZ MD Oct 25, 2021 14:54
[2021-10-26] VITALS: BP 151/82
[2021-10-26 04:00] VITALS: BP 161/82
[2021-10-26 07:00] VITALS: BP 187/111
[2021-10-26] MEDS ORDERED: HYDR-2145 PO (08:01)
[2021-10-26] MEDS ORDERED: HYDR-2869 PO (08:01)
[2021-10-26] MEDS ORDERED: CARV12.511 PO (08:01)
[2021-10-26] MEDS ORDERED: LOSA-73 PO (08:01)
[2021-10-26] MEDS ORDERED: AMLO-187 PO (08:01)
--- NOTE | 2021-10-26 08:05 | DISCH ---
DISCHARGE INSTRUCTIONS Condition on Discharge Condition on Discharge: Stable Activity After Discharge Activity Instructions for Disc: Activity as tolerated Lifting Instructions after Dis: Do not lift >10 pounds Driving Instructions after Dis: Do not drive today Weight Bearing Status after Di: As tolerated Diet after Discharge Diet after Discharge: Cardiac, Diabetic No Calorie Level Follow-Up Follow up with: PCP within 2 weeks of discharge Follow Up With: Cardiology as needed or as scheduled JIMENA SCHULZ MD Oct 26, 2021 08:05
[2021-10-26] MEDS: hydroCHLOROthiazide 25 MG TABLET PO SCH (08:37)
[2021-10-26] MEDS: CARVEDILOL 12.5 MG TABLET. PO SCH (08:38)
[2021-10-26] MEDS: LOSARTAN POTASSIUM 50 MG TABLET. PO SCH (08:38)
[2021-10-26 11:45] VITALS: BP 149/80
--- NOTE | 2021-10-26 11:55 | NUR ---
all belonging left with patient. left per w/c to car with family
--- NOTE | 2021-10-30 10:50 | PDOC3 ---
[facility]-Discharge Summary Date of Admission: Date of Admission: Oct 22, 2021 Date of Discharge: Date of Discharge: Oct 26, 2021 Discharge Diagnosis: Discharge Diagnosis: Hypertensive emergency Concern for SAH - repeat imaging did not show further bleed. Previous findings considered artifact. MARCELINO due to vasomotor nephropathy Mild transaminitis Elevated BNP suggestive of volume overload History of hypertension, noncompliant and uncontrolled Obesity class I Procedures: Procedures: PROCEDURE: CT HEAD WO CONTRAST CT HEAD/BRAIN WO History: Rule out subarachnoid hemorrhage Comparison: CT head 10/22/2021 Technique: Noncontrast CT imaging was performed of the head. Findings: No intracranial hemorrhage. No mass effect. No hydrocephalus. No evidence of acute territorial infarction. The area of perceived increased density on prior exam is not redemonstrated on the current exam, likely representing imaging artifact previously. There are redemonstrated areas of hypodensity in the periventricular and deep white matter. Imaged orbits are unremarkable. Imaged paranasal sinuses and mastoid air cells are clear. The scalp and calvarium are unremarkable. Impression: 1. Possible area of subarachnoid hemorrhage not redemonstrated, likely representing imaging artifact. 2. Areas of hypoattenuation within the periventricular and deep white matter, greater than expected for patient's age. Reiterate previous recommendation for MRI for further evaluation. Hospital Course: Hospital Course: 46-year-old female with only known history of hypertension who comes in with headaches that started last night and chest pressure and shortness of breath that started later on today. She states that her headache abated last night but also came back this morning. Patient was unable to fill her medications for about a year due to not having insurance. She lost her father last year in March and she is stressed about it. She does have has some chest comfort which is rated 8 out of 10. She describes this as pressure-like nature and does not radiate anywhere specific. She supposed to be taking metoprolol 50 mg. 10/23: Patient seen in ICU. She states her headache is resolved. Abdominal ultrasound pending. Repeat CT head this morning showed possible area of subarachnoid hemorrhage not redemonstrated, likely representing imaging artifact; areas of hypoattenuation within the periventricular and deep white matter, greater than expected for patient's age. Patient denies any history concerning for MS or other demyelinating process. We will add losartan and chlorthalidone to her blood pressure regimen given proteinuria on UA. Monitor blood pressure overnight. Discussed with RN. 10/24: Patient seen at bedside. Reportedly systolic blood pressure increased to over 200 today, and placed back on nicardipine drip. We will adjust her blood pressure medications. Her ASCVD risk factor is not recommending statins currently. Her hemoglobin A1c is pending. 10/25/2021 No acute events or night. Patient seen examined bedside. Cardene started overnight due to elevated blood pressures greater than 200s. This morning patient seen was still in the systolics of 190s. Started on amlodipine, losartan and HCTZ. Hydralazine has been added due to uncontrolled blood pressures. We will continue to observe. Anticipate discharge tomorrow. Patient's chart, labs, images were reviewed and discussed with RN By day of discharge patient's BP improved to 140/80s. She was clinically stable and her symptoms improved. She will need to start her BP medications listed below. Disposition: Disposition/Orders: D/C to Home Activity: Activity: Resume previous activity Diet: Diet: Cardiac Medications: Home Meds Active Scripts Hydrochlorothiazide (HYDROCHLOROTHIAZIDE TABLET ) 25 Mg Tablet, 25 MG PO DAILY for blood pressure for 30 Days, #30 TAB 2 Refills Prov:JIMENA SCHULZ MD 10/26/21 Losartan Potassium (COZAAR ) 50 Mg Tablet, 100 MG PO DAILY for blood pressure for 30 Days, #60 TAB 2 Refills Prov:JIMENA SCHULZ MD 10/26/21 Amlodipine Besylate (AMLODIPINE BESYLATE) 10 Mg Tablet, 10 MG PO DAILY for blood pressure for 30 Days, #2 TAB Prov:JIMENA SCHULZ MD 10/26/21 Carvedilol (CARVEDILOL ) 12.5 Mg Tablet, 12.5 MG PO BIDWMEALS for blood pressure for 30 Days, #60 TAB 2 Refills Prov:JIMENA SCHULZ MD 10/26/21 Hydralazine Hcl (HYDRALAZINE HCL) 50 Mg Tablet, 50 MG PO BID for blood pressure for 30 Days, #60 TAB 2 Refills Prov:JIMENA SCHULZ MD 10/26/21 Discontinued Reported Medications Metoprolol Succinate (Toprol XL) 50 Mg Tab.er.24h, 50 MG PO BID for FOR HYPERTENSION, TAB.SR 10/22/21 Scheduled Amlodipine Besylate (Amlodipine Besylate), 10 MG PO DAILY Carvedilol (Carvedilol ), 12.5 MG PO BIDWMEALS Hydralazine Hcl (Hydralazine Hcl), 50 MG PO BID Hydrochlorothiazide (Hydrochlorothiazide Tablet ), 25 MG PO DAILY Losartan Potassium (Cozaar ), 100 MG PO DAILY Discontinued Medications Metoprolol Succinate (Toprol XL), 50 MG PO BID, (Reported) Total Time: Total Time: Total time spent was 32 minutes in preparing scripts and discharge planning with SW and RN. Patient seen and examined on day of Discharge. Justicifation of Admission Dx: Justifications for Admission: Justification of Admission Dx: Yes CHF: Cardiac Arrhythmias JIMENA SCHULZ MD Oct 30, 2021 10:50
== END 2021-10-26 11:55 | disposition home or self-care (01) | DRG 304 ==
LOC: ER 16:17 → 6 SOUTH 17:41 → 1 WEST ICU 19:52
PROVIDERS: ADMIT Internal Medicine; ATTEND Internal Medicine
DX: I16.1 Hypertensive emergency (principal); N17.0 Acute kidney failure with tubular necrosis; Z68.43 Body mass index [BMI] 50.0-59.9, adult; E66.9 Obesity, unspecified; I11.9 Hypertensive heart disease without heart failure; Z56.0 Unemployment, unspecified; Z82.49 Family history of ischemic heart disease and other diseases of the circulatory system; Z91.19 Patient's noncompliance with other medical treatment and regimen; R74.01 Elevation of levels of liver transaminase levels
CPT/HCPCS: 36415; 70450; 71045; 76700; 80048; 80053; 80061; 80307; 81001; 81025; 83036; 83690; 83735; 83880; 84100; 84484; 85025; 85610; 85730; 93005; 93306; 96365; 96366; J0360; J3475; J3490; J7050; 99285-25; C8929; G0378; J7030